=== PATIENT | male | born 1940 | race Caucasian/White ===

== ENCOUNTER 2018-09-08 21:44 | Emergency (ER) | payer OTHER ==
[2018-09-08 22:18] VITALS: TEMP 97.5
--- NOTE | 2018-09-08 22:46 | ED.PDOC ---
History of Present Illness - General Chief Complaint: Lower Extremity Injury Stated Complaint: rt hip pain Time Seen by Provider: 09/08/18 21:57 Source: patient Exam Limitations: no limitations - History of Present Illness Initial Comments: PT TRIPPED AT WORK. HIT HIS HEAD ON A PALLET AND LANDED ON HIS LEG. C/O PAIN TO R UPPER LEG. NO LOC, NO HEAD OR NECK PAIN. Severity: moderate Improving Factors: nothing Worsening Factors: nothing Associated Symptoms: denies symptoms Allergies/Adverse Reactions: Allergies NO KNOWN ALLERGY Allergy (Verified 09/08/18 22:18) Home Medications: Ambulatory Orders Amlodipine Besylate 10 mg PO DAILY 09/08/18 Aspirin [Aspirin Low Strength] 81 mg PO DAILY 09/08/18 Atorvastatin Calcium 40 mg PO DAILY 09/08/18 Clopidogrel Bisulfate [Plavix] 75 mg PO DAILY 09/08/18 Losartan Potassium 100 mg PO DAILY 09/08/18 Melatonin 5 mg PO 09/08/18 Meloxicam 15 mg PO DAILY 09/08/18 Metformin HCl 1,000 mg PO BID 09/08/18 Metoprolol Succinate [Metoprolol Succinate ER] 25 mg PO DAILY 09/08/18 Naproxen Sodium [Aleve] 220 mg PO BID 09/08/18 Tamsulosin [Flomax] 0.4 mg PO BID 09/08/18 Review of Systems - Review of Systems Constitutional: States: no symptoms reported EENTM: States: no symptoms reported Respiratory: Denies: cough, short of breath Cardiology: Denies: chest pain Gastrointestinal/Abdominal: Denies: nausea, vomiting Genitourinary: States: no symptoms reported Musculoskeletal: States: other - PAIN R UPPER LEG. Denies: back pain, neck pain Skin: States: no symptoms reported Neurological: Denies: numbness, paresthesia, weakness Endocrine: States: no symptoms reported Hematologic/Lymphatic: States: no symptoms reported Past Medical History (General) - Patient Medical History Hx Cardiac Disorders: Yes Hx Congestive Heart Failure: Yes Hx Hypertension: Yes Hx Diabetes: Yes Surgical History: coronary bypass surgery - Vaccination History Hx Tetanus, Diphtheria Vaccination: Yes Hx Influenza Vaccination: Yes - Triage Comment ED Triage Comment: Pain o upper right thigh and hip. Fell onto hip and hit rt side of head, but denies pain to head, no LOC Family Medical History - Family History Father Family History: Unknown Physical Exam - Physical Exam General Appearance: Alert, No apparent distress Eye Exam: bilateral normal Ears, Nose, Throat: hearing grossly normal, other - SMALL ABRSION POST OCCIPUT Neck: non-tender, full range of motion, supple Respiratory: lungs clear, normal breath sounds Cardiovascular/Chest: regular rate, rhythm, no murmur Gastrointestinal/Abdominal: non tender, soft, no organomegaly Back Exam: normal inspection, no vertebral tenderness Extremity: other - TTP R UPPER LEG. NO EVIDENCE OF TRAUMA, NVI, HIP NL NL ROM. Neurologic: no motor/sensory deficits, alert, normal mood/affect, oriented x 3 Skin Exam: normal color, warm/dry Lymphatic: no adenopathy Progress - EKG/XRAY/CT XRAY: FEMUR, LORNA CT: HEAD NEG PER RADIOLOGY Departure - Departure Clinical Impression: Contusion of scalp Qualifiers: Encounter type: initial encounter Qualified Code(s): S00.03XA - Contusion of scalp, initial encounter Contusion of leg Qualifiers: Encounter type: initial encounter Laterality: right Qualified Code(s): S80.11XA - Contusion of right lower leg, initial encounter Time of Disposition: 23:26 Disposition: Discharge to Home or Self Care Condition: Good Departure Forms: ED Discharge - Pt. Copy, Patient Portal Self Enrollment Instructions: Contusion (DC) Referrals: MICAELA GARCIA [Primary Care Provider] - 1-2 Weeks Home Medications: Ambulatory Orders Amlodipine Besylate 10 mg PO DAILY 09/08/18 Aspirin [Aspirin Low Strength] 81 mg PO DAILY 09/08/18 Atorvastatin Calcium 40 mg PO DAILY 09/08/18 Clopidogrel Bisulfate [Plavix] 75 mg PO DAILY 09/08/18 Losartan Potassium 100 mg PO DAILY 09/08/18 Melatonin 5 mg PO 09/08/18 Meloxicam 15 mg PO DAILY 09/08/18 Metformin HCl 1,000 mg PO BID 09/08/18 Metoprolol Succinate [Metoprolol Succinate ER] 25 mg PO DAILY 09/08/18 Naproxen Sodium [Aleve] 220 mg PO BID 09/08/18 Tamsulosin [Flomax] 0.4 mg PO BID 09/08/18
--- NOTE | 2018-09-08 23:13 | RAD ---
EXAM DESCRIPTION: Femur,Right CLINICAL HISTORY: 77 years Male, FALL WITH PAIN COMPARISON: None. FINDINGS: No evidence for an acute fracture. No dislocation. Mild osteophyte formation of the knee noted. Vascular calcifications are present. Prostate brachytherapy seeds are present. IMPRESSION: No acute findings. Electronically signed by: Jona Veronica MD 09/08/2018 11:10 PM CDT
--- NOTE | 2018-09-08 23:14 | CT ---
EXAM: CT head without contrast. INDICATION: Trauma, on blood thinners. TECHNIQUE: Contiguous axial CT images of the brain. Intravenous contrast: Absent. DLP 964 mGy-cm. This exam was performed according to our departmental dose-optimization program, which includes automated exposure control, adjustment of the mA and/or kV according to patient size and/or use of iterative reconstruction technique. COMPARISON: None. FINDINGS: Subcutaneous: Unremarkable. No acute intracranial hemorrhage. No midline shift. No mass effect. Ventricles: No hydrocephalus. Whitt-white differentiation preserved. Paranasal sinuses/mastoid air cells: Visualized portions are aerated. Bones/orbits: Visualized portions are unremarkable. IMPRESSION: 1. No CT evidence of acute intracranial hemorrhage. Electronically signed by: Kirill Aleman MD 09/08/2018 11:11 PM CDT Workstation: [id number]
[2018-09-08 23:25] VITALS: BP 92/59; O2SAT 95
== END 2018-09-08 23:43 | disposition home or self-care (01) ==
LOC: ER 21:44
DX: S00.03XA Contusion of scalp, initial encounter (principal); S80.11XA Contusion of right lower leg, initial encounter; M25.551 Pain in right hip; I50.9 Heart failure, unspecified; I11.0 Hypertensive heart disease with heart failure; E11.9 Type 2 diabetes mellitus without complications; W01.0XXA Fall on same level from slipping, tripping and stumbling without subsequent striking against object, initial encounter; Y99.0 Civilian activity done for income or pay; Y92.69 Other specified industrial and construction area as the place of occurrence of the external cause; Z95.1 Presence of aortocoronary bypass graft; Z79.84 Long term (current) use of oral hypoglycemic drugs; Z79.82 Long term (current) use of aspirin; Z79.899 Other long term (current) drug therapy

== ENCOUNTER → 2018-10-24 | Outpatient (CLI) | payer MEDICARE, OTHER ==
--- NOTE | 2018-10-24 11:31 | US ---
EXAM DESCRIPTION: Venous,Lower Extremity RT CLINICAL HISTORY: LOCALIZED SWELLING MASS AND LUMP RIGHT LOWER LIMB COMPARISON: None Available. TECHNIQUE: Right lower extremity venous grayscale, spectral, and color Doppler sonographic images. FINDINGS: There is no DVT identified. There is normal color flow observed with good flow augmentation. All deep veins compress normally. Fluid collection in the popliteal fossa measuring 5.9 x 1.4 x 0.8 cm, likely a popliteal cyst. IMPRESSION: Negative for DVT Electronically signed by: Jamie Leal MD 10/24/2018 11:28 AM CDT
== END ==
LOC: US 09:36
PROVIDERS: ATTEND Nurse Practitioner Family
DX: R22.41 Localized swelling, mass and lump, right lower limb (principal); I48.91 Unspecified atrial fibrillation

== ENCOUNTER → 2019-01-16 | Outpatient (CLI) | payer MEDICARE, OTHER ==
--- NOTE | 2019-01-16 12:43 | RAD ---
PROVIDED CLINICAL HISTORY/REASON FOR EXAM: M25.512/M25.511 Findings: Number of images: Four Location: Left shoulder No acute fracture or dislocation. High riding humeral head with moderate glenohumeral osteoarthritis. Widening of the acromioclavicular joint space. The coracoclavicular space is also widened. Intra-articular loose body measuring 9 mm. Osteopenia. Visualized chest is unremarkable. Narrowing of the subacromial space suggests a chronic rotator cuff injury. The widening of the acromioclavicular joint space and coracoclavicular space suggests AC joint separation. IMPRESSION: Chronic degenerative changes about the left shoulder. No acute osseous abnormality. Electronically signed by: Orlando Saleh MD 01/16/2019 12:42 PM CDT
--- NOTE | 2019-01-16 12:56 | RAD ---
PROVIDED CLINICAL HISTORY/REASON FOR EXAM: M25.512/M25.511 Findings: Number of images: 4 Location: Right shoulder No acute fracture or dislocation. Mild acromioclavicular osteoarthritis. Soft tissues are unremarkable. Subacromial space is narrowed. Visualized chest is clear. High riding humeral head. Mild glenohumeral osteoarthritis. IMPRESSION: Chronic degenerative changes about the right shoulder. No evidence of acute process. Electronically signed by: Orlando Saleh MD 01/16/2019 12:55 PM CDT
== END ==
LOC: RAD 07:37
PROVIDERS: ATTEND Orthopaedic Surgery
DX: M19.011 Primary osteoarthritis, right shoulder (principal); M19.012 Primary osteoarthritis, left shoulder

== ENCOUNTER → 2019-01-20 | Outpatient (CLI) | payer MEDICARE, OTHER ==
--- NOTE | 2019-01-20 13:58 | MRI ---
Study: MRI of the Left Shoulder. Indication: ROTATOR CUFF SYNDROME Technique: Multiplanar, multi sequence MRI of the left shoulder was obtained without intravenous contrast. Comparison: Radiographs January 16, 2019. Findings: Severe AC joint osteoarthritis with widening of the joint space and a moderate size joint effusion. Ossification within the coracoclavicular ligament. One shaft width superior displacement distal clavicle in relation to the acromion indicating a remote AC joint injury. Full-thickness, fullwidth supraspinatus and infraspinatus tendon tearing with torn tendon fibers retracted medial to the glenoid. High grade articular, effectively full-thickness, fullwidth subscapularis tendon tearing with the majority of the torn tendon bulk retraction medial to the glenoid. Severe atrophy and grade 3 fatty infiltration rotator cuff musculature. Long head biceps tendon torn and distally retracted. The humeral head is anteriorly subluxed in relation to the glenoid by 15 mm. Mass of joint effusion with extensive scattered synovitis/debris. Ganglionic like extension of fluid into the posterolateral deltoid musculature. Circumferential labral truncation and degeneration. Grade 4 chondrosis and subchondral cystic change superior glenoid rim. Pronounced cortical remodeling and subcortical cystic change lateral margin humeral head with additional patchy areas of grade 2 and 3 chondrosis throughout the joint with small inferior osteophytes. No acute fracture. Impression: Full-thickness, fullwidth chronic appearing retracted supraspinatus and infraspinatus tendon tearing. High-grade articular, effectively full-thickness, fullwidth subscapularis tendon tear. Severe atrophy and grade 3 fatty infiltration rotator cuff musculature. Torn and distally retracted long head biceps tendon. Mild to moderate glenohumeral joint osteoarthritis with a massive joint effusion and extensive synovitis/debris throughout the joint. A component of underlying inflammatory arthritis could give this appearance. Sterility of the effusion is indeterminate 5 this exam. Remote AC joint injury with secondary osteoarthritis. Additional findings as above. Electronically signed by: Joel Sun MD 01/20/2019 1:56 PM CDT
== END ==
LOC: LAB.O 10:07
PROVIDERS: ATTEND Orthopaedic Surgery
DX: S46.212A Strain of muscle, fascia and tendon of other parts of biceps, left arm, initial encounter (principal); S46.012A Strain of muscle(s) and tendon(s) of the rotator cuff of left shoulder, initial encounter; S43.82XA Sprain of other specified parts of left shoulder girdle, initial encounter; M19.012 Primary osteoarthritis, left shoulder; M62.512 Muscle wasting and atrophy, not elsewhere classified, left shoulder; M25.512 Pain in left shoulder

== ENCOUNTER 2019-01-21 18:07 | Emergency (ER) | payer MEDICARE, OTHER ==
[2019-01-21] MEDS ORDERED: PROMETHAZINE HCL INJ 25 MG/ML VIAL IM ONE (19:27)
[2019-01-21] MEDS ORDERED: HYDROmorphone HCL INJ 2 MG/ML VIAL IM ONE ×2 (19:27→20:40)
--- NOTE | 2019-01-21 20:36 | ED.PDOC ---
History of Present Illness - General Chief Complaint: General Stated Complaint: L shoulder discomfort Time Seen by Provider: 01/21/19 18:44 Source: patient Exam Limitations: no limitations - History of Present Illness Initial Comments: Emmanuel Dodge 78 y/o male came to ER with left shoulder pain for the last several weeks and had hemarthrosis drained out from his left shoulder last one was 2 days ago.Has appointment for open drainage of his hemarthrosis with Dr. De Luna orthopedist on Saturday. Timing/Duration: intermittent, other - see hpi Severity: moderate Improving Factors: nothing, eating Associated Symptoms: other - see hpi Allergies/Adverse Reactions: Allergies NO KNOWN ALLERGY Allergy (Verified 09/08/18 22:18) Home Medications: Ambulatory Orders Amlodipine Besylate 10 mg PO DAILY 09/08/18 Atorvastatin Calcium 40 mg PO DAILY 09/08/18 Clopidogrel Bisulfate [Plavix] 75 mg PO DAILY 09/08/18 Losartan Potassium 100 mg PO DAILY 09/08/18 Melatonin 5 mg PO DAILY 09/08/18 Meloxicam 7.5 mg PO DAILY 09/08/18 Metformin HCl [Metformin Hydrochloride] 1,000 mg PO BID 09/08/18 Metoprolol Succinate [Metoprolol Succinate ER] 25 mg PO DAILY 09/08/18 Tamsulosin [Flomax] 0.4 mg PO DAILY 09/08/18 Acetaminophen W/ Codeine [Acetaminophen/Codeine #3 300-30 mg] 1 tab PO PRN 01/21/19 Acetaminophen W/ Codeine [Tylenol/Codeine #4 300-60 mg] 1 ea PO Q4HR PRN #20 tab 01/21/19 Apixaban [Eliquis] 2.5 mg PO DAILY 01/21/19 Cephalexin 1,000 mg PO BID 7 Days #30 cap 01/21/19 Empagliflozin [Jardiance] 10 mg PO DAILY 01/21/19 Ferrous Sulfate 325 mg PO BID 01/21/19 Furosemide 40 mg PO DAILY 01/21/19 Potassium Chloride [Potassium Chloride ER] 10 meq PO DAILY 01/21/19 Review of Systems - Review of Systems Musculoskeletal: States: joint swelling - left shoulder All other Systems: Reviewed and Negative, No Change from Baseline Past Medical History (General) - Patient Medical History Hx Cardiac Disorders: Yes - AAA Hx Congestive Heart Failure: Yes Hx Hypertension: Yes Hx Diabetes: Yes Hx Cancer: Yes - Prostate Surgical History: coronary bypass surgery, other - aaa repair - Vaccination History Hx Tetanus, Diphtheria Vaccination: Yes Hx Influenza Vaccination: Yes - 2017 Hx Pneumococcal Vaccination: Yes - Social History Hx Tobacco Use: No Hx Alcohol Use: No Family Medical History - Family History Father Family History: Unknown Physical Exam - Physical Exam General Appearance: Alert, Other - in pain Eye Exam: bilateral normal, bilateral other - need to wear glassees Ears, Nose, Throat: hearing grossly normal, normal ENT inspection Neck: supple, normal inspection Respiratory: lungs clear, normal breath sounds, no respiratory distress Cardiovascular/Chest: normal peripheral pulses, regular rate, rhythm, no murmur Peripheral Pulses: radial,right: 2+, radial,left: 2+ Gastrointestinal/Abdominal: soft, no organomegaly Back Exam: no CVA tenderness, no vertebral tenderness Extremity: no pedal edema, no calf tenderness Neurologic: alert, oriented x 3, other - [id number] left shoulder joint with painful rom Skin Exam: normal color, warm/dry Progress - Progress Progress: 01/21/19 20:39 Vital Signs - 8 hr 01/21/19 01/21/19 01/21/19 18:07 19:28 20:00 Temperature 98.9 F Pulse Rate [ 73 67 68 Left Brachial] Respiratory 20 18 20 Rate Blood Pressure 165/84 135/76 123/65 [Left Arm] O2 Sat by Pulse 97 96 96 Oximetry Procedures - Incision and Drainage #1 Site: left shoulder joint Procedure and Prep: betadine prep, sterile drapes applied, sterile dressings applied, other - drainage of hemarthrosis Blade Size: 11 Departure - Departure Clinical Impression: Hemarthrosis involving shoulder region Qualifiers: Laterality: left Qualified Code(s): M25.012 - Hemarthrosis, left shoulder Time of Disposition: 20:44 Disposition: Discharge to Home or Self Care Condition: Fair Departure Forms: ED Discharge - Pt. Copy, Patient Portal Self Enrollment Instructions: Hemarthrosis (DC) Referrals: MICAELA GARCIA [Primary Care Provider] - 1-2 Weeks Prescriptions: Acetaminophen W/ Codeine [Tylenol/Codeine #4 300-60 mg] 1 ea PO Q4HR PRN #20 tab PRN Reason: Pain Cephalexin 1,000 mg PO BID 7 Days #30 cap Home Medications: Ambulatory Orders Amlodipine Besylate 10 mg PO DAILY 09/08/18 Atorvastatin Calcium 40 mg PO DAILY 09/08/18 Clopidogrel Bisulfate [Plavix] 75 mg PO DAILY 09/08/18 Losartan Potassium 100 mg PO DAILY 09/08/18 Melatonin 5 mg PO DAILY 09/08/18 Meloxicam 7.5 mg PO DAILY 09/08/18 Metformin HCl [Metformin Hydrochloride] 1,000 mg PO BID 09/08/18 Metoprolol Succinate [Metoprolol Succinate ER] 25 mg PO DAILY 09/08/18 Tamsulosin [Flomax] 0.4 mg PO DAILY 09/08/18 Acetaminophen W/ Codeine [Acetaminophen/Codeine #3 300-30 mg] 1 tab PO PRN 01/21/19 Acetaminophen W/ Codeine [Tylenol/Codeine #4 300-60 mg] 1 ea PO Q4HR PRN #20 tab 01/21/19 Apixaban [Eliquis] 2.5 mg PO DAILY 01/21/19 Cephalexin 1,000 mg PO BID 7 Days #30 cap 01/21/19 Empagliflozin [Jardiance] 10 mg PO DAILY 01/21/19 Ferrous Sulfate 325 mg PO BID 01/21/19 Furosemide 40 mg PO DAILY 01/21/19 Potassium Chloride [Potassium Chloride ER] 10 meq PO DAILY 01/21/19 Additional Instructions: Keep appointment with Dr. De Luna Orthopedist as scheduled;Return to Emergency room as needed
[2019-01-21] MEDS ORDERED: HYDROCOD/APAP 5/325 (ER DISP) #3 TAB PO ONE (20:41)
[2019-01-21] MEDS ORDERED: CEPHALEXIN MONOHYDRATE 500 MG CAP PO ONE (20:47)
[2019-01-21 20:55] VITALS: BP 137/63; TEMP 98.1; O2SAT 94
== END 2019-01-21 20:51 | disposition home or self-care (01) ==
LOC: ER 18:07
DX: M25.012 Hemarthrosis, left shoulder (principal); I50.9 Heart failure, unspecified; I11.0 Hypertensive heart disease with heart failure; E11.9 Type 2 diabetes mellitus without complications; Z85.46 Personal history of malignant neoplasm of prostate; Z95.1 Presence of aortocoronary bypass graft; Z79.899 Other long term (current) drug therapy; Z79.01 Long term (current) use of anticoagulants
CPT/HCPCS: J1170; J2550

== ENCOUNTER 2019-01-23 05:25 | Day surgery (SDC) | payer MEDICARE, OTHER ==
--- NOTE | 2019-01-22 09:51 | HP ---
CHIEF COMPLAINT: Left shoulder pain. HISTORY OF PRESENT ILLNESS: Mr. Dodge is an 78-year-old male with a history of swelling and pain in the shoulder. He has had pain going on for a couple of weeks now. He has been having to a sling because of the severity of his symptoms. At this point, he has no history of trauma related to this recently, but has a remote history. He says the pain he is having is at a 10 and pretty much is constant. He says he has been on Eliquis and Plavix. It is causing him difficulty with his daily activities. Because of the ongoing swelling and the multiple times it has been drained, he has requested operative intervention. He has arthritis and full thickness rotator cuff tear with retraction, however, because of the current symptoms, I think he would benefit most from doing an I&D followed by a shoulder replacement once his symptoms have improved and he has cardiology clearance. After discussing the risks, benefits and alternatives to this, he has given informed consent. PAST SURGICAL HISTORY: None. MEDICATIONS: 1. Amlodipine. 2. Atorvastatin. 3. Eliquis. 4. Furosemide. 5. Hydrocodone. 6. Klor-Con. 7. Iron. 8. Losartan. 9. Metformin. 10. Metoprolol. 11. Tamsulosin. PAIN CONTRACT: None. ALLERGIES: NO KNOWN DRUG ALLERGIES. CODE STATUS: DNR. IMMUNIZATIONS: Up to date. SOCIAL HISTORY: The patient does not drink, smoke or use any illicit drugs. FAMILY HISTORY: None pertinent to today's complaint. REVIEW OF SYSTEMS: Negative except as indicated in the History of Present Illness. PHYSICAL EXAMINATION: VITAL SIGNS: Blood pressure 140/62. Pulse 70. Height 5'10". Weight 178 pounds. MENTAL STATUS: The patient is awake, alert, and is able to give a good history and participate in the physical. The patient is oriented to person, place and time. SKIN: Normal tone and turgor. HEENT: Normocephalic, atraumatic. Pupils equal, round and reactive. Mucosal membranes are moist. NECK: Normal range of motion. No thyromegaly, no lymphadenopathy. CHEST: Normal respiratory excursion. CARDIAC: Regular rate and rhythm. No murmurs, rubs or gallops. MUSCULOSKELETAL: Both lower extremities show full active range of motion without pain. He has intact sensation in the extremities and they are warm and well perfused. Sensation is intact. There is no deformity and no crepitus with range of motion. The right upper extremity has some pain with range of motion, but is relatively minimal. He has intact sensation throughout the extremity and it is warm and well perfused. There is no deformity and no crepitus. The left upper extremity shows a tense effusion in the shoulder. He has difficulty with any range of motion secondary to pain. There is no increased warmth and no erythema over that area. The extremity is warm and well perfused. Strength testing of the shoulder is difficult secondary to pain. 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 IMAGING: X-rays show arthritis and large hematoma and evidence of full thickness rotator cuff tear with retraction. PLAN: The plan at this point is for I&D of the shoulder with followup likely total shoulder arthroplasty in the future. We have discussed the risks, benefits, and alternatives to that and the patient has given informed consent. #[id number] MTDD
--- NOTE | 2019-01-22 13:05 | RAD ---
EXAM DESCRIPTION: Chest,2 Views CLINICAL HISTORY: z01.811 preop COMPARISON: Chest radiograph dated October 24, 2018 FINDINGS: PA and lateral views of the chest. Postsurgical changes with median sternotomy wires. Cardiac silhouette shows normal heart size. Pulmonary vascularity is within normal limits. Linear opacity in the left retrocardiac region, best seen on the lateral view, may represent atelectasis versus infiltrate. Right lung shows no confluent infiltrates. No significant pleural effusion. No pneumothorax. Mild degenerative disc disease of the thoracic spine. IMPRESSION: 1. Linear opacity left retrocardiac region may represent atelectasis versus infiltrate. 2. Other findings as above. Electronically signed by: Rodríguez Ceron MD 01/22/2019 1:04 PM CDT
[2019-01-23] MEDS ORDERED: LACTATED RINGERS 1,000 ML ONE (05:58)
[2019-01-23] MEDS ORDERED: SODIUM CHL 0.9% 100ML MINI-BAG 100 ML IVPB ONE (05:58)
[2019-01-23] MEDS ORDERED: ceFAZolin SODIUM 1 GM VIAL ONE ×3 (05:58→06:42)
[2019-01-23] MEDS ORDERED: BUPIVACAINE 0.5% 30 ML VIAL INJ ONE (06:33)
[2019-01-23] MEDS ORDERED: VANCOMYCIN HCL INJ 1,000 MG VIAL IVPB ONE ×3 (06:33→07:45)
[2019-01-23] MEDS ORDERED: ROCURONIUM BROMIDE 10 MG/ML VIAL ONE (06:48)
[2019-01-23] MEDS ORDERED: fentaNYL CITRATE INJ 50 MCG/ML AMP ONE (06:48)
[2019-01-23] MEDS ORDERED: SUGAMMADEX SODIUM 200 MG/2 ML VIAL IV ONE (06:48)
[2019-01-23] MEDS ORDERED: ONDANSETRON INJ 4 MG/2 ML VIAL ONE ×2 (07:00→07:03)
[2019-01-23] MEDS ORDERED: DEXAMETHASONE INJ 10 MG/ML VIAL ONE (07:00)
[2019-01-23] MEDS ORDERED: PROPOFOL 200 MG/20 ML VIAL IV ONE (07:00)
[2019-01-23] MEDS ORDERED: LIDOCAINE 1% 10 ML VIAL INJ ONE (07:00)
[2019-01-23] MEDS ORDERED: SODIUM CHLORIDE 0.9% 250ML 250 ML ONE (07:45)
[2019-01-23] MEDS: BUPIVACAINE LIPOSOME 13.3 MG/ML VIAL INJ ONE ×2 (08:25→08:26)
[2019-01-23] MEDS ORDERED: LACTATED RINGERS 1,000 ML IVS ONE (08:51)
[2019-01-23] MEDS ORDERED: MORPHINE SULFATE INJ 10 MG/ML VIAL ONE (09:02)
[2019-01-23] MEDS ORDERED: MORPHINE SULFATE INJ 10 MG/ML VIAL IV ONE ×4 (09:05→09:25)
[2019-01-23] MEDS ORDERED: HYDROcodone 5MG/APAP 325MG 1 EA TAB ONE (09:52)
[2019-01-23] MEDS ORDERED: HYDROCOD/APAP 5/325 (ER DISP) #3 TAB PO ONE (10:05)
[2019-01-23 11:26] VITALS: BP 101/52; TEMP 96.4; O2SAT 94
--- NOTE | 2019-01-27 07:54 | OP ---
DATE OF PROCEDURE: 01/23/19 PREOPERATIVE DIAGNOSIS: 1. Hemarthrosis. 2. Arthritis. 3. Rotator cuff tear. POSTOPERATIVE DIAGNOSIS: 1. Hemarthrosis. 2. Arthritis. 3. Rotator cuff tear. PROCEDURE: 1. I&D of shoulder. SURGEON: Xiang De Luna MD. GLOBAL CTO: Cosme Norris CST, SA-C. ANESTHESIA: General anesthesia. COMPLICATIONS: None. FINDINGS: 1. Large hemarthrosis with very large clot. 2. Full thickness rotator cuff tear with retraction. 3. Endstage arthritis. INDICATION FOR PROCEDURE: Mr. Dodge has a long history of shoulder pain, however, has been getting significantly worse and has had acute onset of nontraumatic swelling. He has a history of utilization of Eliquis. Because of the presence of that, he has had multiple attempts at aspiration. He has continued to have reaccumulation of the hemarthrosis. Because of his ongoing issues and severe pain, he has requested operative intervention. After discussing the risks, benefits and alternatives to operative therapy, he has given informed consent. PROCEDURE: The patient was brought to the Operating Room and placed in supine position. General anesthesia was induced. The patient was transitioned into the beach chair position. Following transitioning into the beach chair position, the arm was sterilely prepped and draped. An incision was made over the deltopectoral interval and following that, dissection was carried down and the clavipectoral fascia was opened. Upon opening that, a very large hematoma was evacuated. The entire shoulder was examined and thoroughly irrigated to evacuate the entirety of the hemarthrosis. Cultures were taken at the time for completeness sake in evaluation. Once evacuation of the hematoma had been achieved, the wound was closed with reapproximation of the deltopectoral interval followed by reapproximation of the skin with a combination of running and interrupted subcuticular stitches. Sterile dressings were placed. The patient was placed in a sling, awoken from anesthesia and taken to Recovery. POSTOPERATIVE PLAN: He is going to be in a sling and will followup with us in two days. #[id number] MTDD
== END 2019-01-23 11:15 | disposition home or self-care (01) ==
LOC: AMB 05:25
PROVIDERS: ATTEND Orthopaedic Surgery
DX: M25.012 Hemarthrosis, left shoulder (principal); M75.102 Unspecified rotator cuff tear or rupture of left shoulder, not specified as traumatic; M13.812 Other specified arthritis, left shoulder; I10 Essential (primary) hypertension; I73.9 Peripheral vascular disease, unspecified; E11.51 Type 2 diabetes mellitus with diabetic peripheral angiopathy without gangrene; I25.10 Atherosclerotic heart disease of native coronary artery without angina pectoris; I48.91 Unspecified atrial fibrillation; E78.5 Hyperlipidemia, unspecified; Z79.01 Long term (current) use of anticoagulants; Z79.84 Long term (current) use of oral hypoglycemic drugs; Z79.02 Long term (current) use of antithrombotics/antiplatelets; Z79.899 Other long term (current) drug therapy
CPT/HCPCS: 01610; 23030; 36415; 36416; 71046; 80048; 80307; 81001; 82948; 87070; 87205; 93005; J0690; J1100; J2270; J2405; J3010; J3370; J3490; J7050; J7120

== ENCOUNTER → 2019-02-03 | Outpatient (CLI) | payer MEDICARE, OTHER ==
--- NOTE | 2019-02-03 09:13 | CT ---
EXAM DESCRIPTION: Upper Extremity CLINICAL HISTORY: 78 years Male, PRIMARY OSTEOARTHRITIS, LEFT SHOULDER COMPARISON: MRI January 20, 2019, left shoulder series January 16, 2019 TECHNIQUE: CT left shoulder was performed without IV contrast. This exam was performed according to our departmental dose-optimization program, which includes automated exposure control, adjustment of the mA and/or kV according to patient size and/or use of iterative reconstruction technique. FINDINGS: No acute left humeral head or neck fracture. [place]-Sachs fracture suggestive of prior anterior dislocation. The glenoid and scapula are intact. Moderately advanced degenerative changes in the glenohumeral joint including joint space narrowing and osteophyte formation along the inferior glenoid margin and inferior medial humeral head. Subcortical cyst formation in the superior glenoid. Superior migration of the left humeral head relative to the glenoid with narrowing of the subacromial space suggestive of chronic left-sided rotator cuff tear. Pseudoarthrosis formation involving the superior humeral head and acromion with osteophytosis and subcortical cyst formation. Moderate degenerative changes involving the left AC joint including osteophyte formation and subcortical cyst formation. Tiny degenerative calcification along the medial aspect of the coracoid base, additional calcification involving the coracoclavicular ligament suggestive of remote AC joint separation. Large left shoulder joint effusion better visualized on recent MRI with diffuse synovial calcification and/or calcified loose joint bodies. Left-sided facet and uncovertebral joint hypertrophy at multiple levels in the cervical spine resulting in left-sided neuroforaminal stenosis at several levels. A left carotid artery stent is partially visualized. Coronary artery disease. No left-sided airspace consolidation. No apparent left-sided rib fracture. IMPRESSION: Moderate to moderately advanced degenerative changes in the left glenohumeral joint with chronic left-sided rotator cuff tear, superior migration of the left humeral head, subacromial space narrowing and pseudoarthrosis formation as detailed above. [place]-Sachs fracture suggestive of remote anterior left shoulder dislocation. Remote left AC joint separation with moderate degenerative changes in the left AC joint. Degenerative changes in the cervical spine including left-sided facet and uncovertebral joint infarct in the resulting in left-sided neural foraminal stenosis at several levels. Electronically signed by: Paulino Simental MD 02/03/2019 9:12 AM CDT
== END ==
LOC: CT 08:16
PROVIDERS: ATTEND Orthopaedic Surgery
DX: M19.012 Primary osteoarthritis, left shoulder (principal); M75.102 Unspecified rotator cuff tear or rupture of left shoulder, not specified as traumatic; S43.102A Unspecified dislocation of left acromioclavicular joint, initial encounter; M47.892 Other spondylosis, cervical region; Z87.81 Personal history of (healed) traumatic fracture

== ENCOUNTER 2019-02-11 15:26 | Emergency (ER) | payer MEDICARE, OTHER ==
[2019-02-11 15:50] VITALS: TEMP 98.1
[2019-02-11] MEDS ORDERED: POVIDONE IODINE 10 % 15 ML UD TOP ONE (16:04)
[2019-02-11] MEDS ORDERED: LIDOCAINE 1% 10 ML VIAL INJ ONE (16:04)
--- NOTE | 2019-02-11 16:07 | ED.PDOC ---
History of Present Illness - General Chief Complaint: Upper Extremity Injury Stated Complaint: LEFT SHOULDER PAIN Time Seen by Provider: 02/11/19 15:55 Source: patient Exam Limitations: no limitations - History of Present Illness Initial Comments: HE HAS ATRIAL FIB AND ON ELIQUIS. HE ALSO HAS A LEFT SHOULDER HEMARTHROSIS AND ROTATOR CUFF TEAR THAT FREQUENTLY DEVELOPS A TIGHHT HEMATOMA. HE HAS BEEN UNDER THE CARE OF DR. RIVERA AND IS SCHEDULED TO HAVE A SHOULDER REPLACEMENT IN THE NEAR FUTURE. NOW THE LEFT SHOULDER HAS BECOME MORE PAINFUL AND FOR THAT REASON HE IS HERE. IN THE PAST THIS IS ASPIRATED AND ONCE THE TENSION IS RELIEVED HIS PAIN IS USUALLY IMPROVED. Occurred: yesterday Pain - Upper Extremity: severe: Shoulder, left Method of Injury: other - HX OF HEARTHROSIS AND ROTATOR CUFF TEAR. Allergies/Adverse Reactions: Allergies NO KNOWN ALLERGY Allergy (Verified 09/08/18 22:18) Home Medications: Ambulatory Orders Amlodipine Besylate 10 mg PO DAILY 09/08/18 Atorvastatin Calcium 40 mg PO DAILY 09/08/18 Losartan Potassium 100 mg PO DAILY 09/08/18 Melatonin 5 mg PO DAILY 09/08/18 Metformin HCl [Metformin Hydrochloride] 1,000 mg PO BID 09/08/18 Metoprolol Succinate [Metoprolol Succinate ER] 25 mg PO DAILY 09/08/18 Tamsulosin [Flomax] 0.4 mg PO DAILY 09/08/18 Acetaminophen W/ Codeine [Acetaminophen/Codeine #3 300-30 mg] 1 tab PO PRN 01/21/19 Apixaban [Eliquis] 2.5 mg PO DAILY 01/21/19 Empagliflozin [Jardiance] 10 mg PO DAILY 01/21/19 Ferrous Sulfate 325 mg PO BID 01/21/19 Furosemide 40 mg PO DAILY 01/21/19 Potassium Chloride [Potassium Chloride ER] 10 meq PO DAILY 01/21/19 Review of Systems - Review of Systems Constitutional: States: no symptoms reported EENTM: States: no symptoms reported Respiratory: States: no symptoms reported Cardiology: States: no symptoms reported Gastrointestinal/Abdominal: States: no symptoms reported Genitourinary: States: no symptoms reported Musculoskeletal: States: joint pain, joint swelling Skin: States: no symptoms reported Neurological: States: no symptoms reported Past Medical History (General) - Patient Medical History Hx Cardiac Disorders: Yes - AAA Hx Congestive Heart Failure: Yes Hx Hypertension: Yes Hx Diabetes: Yes - GLUCOSE 211 POSTOP Hx Cancer: No Hx MRSA: No - Vaccination History Hx Tetanus, Diphtheria Vaccination: Yes Hx Influenza Vaccination: Yes - 2018 Hx Pneumococcal Vaccination: Yes - Social History Hx Tobacco Use: No Hx Alcohol Use: No Hx Substance Use: No Hx Depression: No Family Medical History - Family History Father Family History: Unknown Physical Exam - Physical Exam General Appearance: Alert, Well Developed, Well Groomed, Well Hydrated, Well Nourished Eyes, Ears, Nose, Throat Exam: PERRL/EOMI, normal ENT inspection, TMs normal Neck: non-tender, full range of motion, supple Cardiovascular/Respiratory: regular rate, rhythm, no M/R/G, normal peripheral pulses, no JVD Abdominal Exam: non-tender, no organomegaly Shoulder Exam: ecchymosis, limited ROM, pain, soft tissue tenderness, swelling Elbow/Forearm Exam: normal inspection, non-tender Neuro/Tendon: normal sensation Procedures - Additional Procedures Progress: LEFT SHOULDER JOINT ASPIRATION: THE LEFT SHOULDER WAS PREPPED WITH BETADINE, 1% LIDOCAINE WAS USED TO INFILTRATE THE SKIN AND WITH AN 18 GAUGE NEEDLE ASPIRATION OF THE JOINT WAS PERFORMED OBTAINING APPROX 50 CC OF BLOODY SYNOVIAL FLUID. THE PATIENT TOLERATE THE PROCEDURE WELL AND HAD SIGNIFICANT RELIEF. HE HAS A F/U APPOINTMENT WITH DR. RIVERA TOMORROW. Departure - Departure Clinical Impression: Hemarthrosis involving glenohumeral joint Qualifiers: Laterality: left Qualified Code(s): M25.012 - Hemarthrosis, left shoulder Rotator cuff tear Qualifiers: Rotator cuff tear extent: unspecified tear extent Rotator cuff tear trauma status: unspecified whether traumatic Laterality: left Qualified Code(s): M75.102 - Unspecified rotator cuff tear or rupture of left shoulder, not specifi ed as traumatic Time of Disposition: 16:31 Disposition: Discharge to Home or Self Care Condition: Good Departure Forms: ED Discharge - Pt. Copy, Patient Portal Self Enrollment Instructions: Hemarthrosis (DC) Diet: resume usual diet Referrals: MICAELA GARCIA [Primary Care Provider] - 1-2 Weeks Home Medications: Ambulatory Orders Amlodipine Besylate 10 mg PO DAILY 09/08/18 Atorvastatin Calcium 40 mg PO DAILY 09/08/18 Losartan Potassium 100 mg PO DAILY 09/08/18 Melatonin 5 mg PO DAILY 09/08/18 Metformin HCl [Metformin Hydrochloride] 1,000 mg PO BID 09/08/18 Metoprolol Succinate [Metoprolol Succinate ER] 25 mg PO DAILY 09/08/18 Tamsulosin [Flomax] 0.4 mg PO DAILY 09/08/18 Acetaminophen W/ Codeine [Acetaminophen/Codeine #3 300-30 mg] 1 tab PO PRN 01/21/19 Apixaban [Eliquis] 2.5 mg PO DAILY 01/21/19 Empagliflozin [Jardiance] 10 mg PO DAILY 01/21/19 Ferrous Sulfate 325 mg PO BID 01/21/19 Furosemide 40 mg PO DAILY 01/21/19 Potassium Chloride [Potassium Chloride ER] 10 meq PO DAILY 01/21/19
[2019-02-11 16:36] VITALS: BP 134/75; O2SAT 98
== END 2019-02-11 16:37 | disposition home or self-care (01) ==
LOC: ER 15:26
DX: M25.012 Hemarthrosis, left shoulder (principal); M75.102 Unspecified rotator cuff tear or rupture of left shoulder, not specified as traumatic; I11.0 Hypertensive heart disease with heart failure; I50.9 Heart failure, unspecified; E11.9 Type 2 diabetes mellitus without complications; Z79.01 Long term (current) use of anticoagulants; Z79.899 Other long term (current) drug therapy; Z79.84 Long term (current) use of oral hypoglycemic drugs

== ENCOUNTER 2019-03-18 05:45 | Day surgery (SDC) | payer MEDICARE, OTHER ==
--- NOTE | 2019-03-12 10:36 | HP ---
CHIEF COMPLAINT: Left shoulder pain. HISTORY OF PRESENT ILLNESS: Mr. Dodge is an 78-year-old male with a history of shoulder pain that has been present for several years and getting progressively worse. He has had multiple times where he has had hemarthrosis. Because of that, he has had to undergo I&D. He has also had issues secondary to his massive rotator cuff tear and advanced arthritis. He has pain that can radiate to a 10 in intensity, although today at rest it is only at a level of about a 1. He has very limited range of motion secondary to stiffness and pain. Alleviating factors are limitation in motions. Aggravating factors are motion, weightbearing and pain at night. As stated, he has had injections, anti- inflammatories and surgical irrigation of the shoulder. Because of his ongoing symptoms, we talked about further operative intervention and for him, it would be a reverse shoulder arthroplasty. After discussing the risks, benefits and alternatives to that, he has given informed consent for total shoulder arthroplasty. PAST SURGICAL HISTORY: 1. I&D of shoulder. MEDICATIONS: 1. Amlodipine. 2. Atorvastatin. 3. Furosemide. 4. Hydrocodone p.r.n. 5. Iron. 6. Klor-Con. 7. Losartan. 8. Metformin. 9. Metoprolol. 10. Tamsulosin. 11. Jardiance. PAIN CONTRACT: None. ALLERGIES: NO KNOWN DRUG ALLERGIES. CODE STATUS: DNR. IMMUNIZATIONS: Up to date. SOCIAL HISTORY: The patient does not drink, smoke or use any illicit drugs. FAMILY HISTORY: None pertinent to today's complaint. REVIEW OF SYSTEMS: Negative except as indicated in the History of Present Illness. HEENT: The patient reports no symptoms. RESPIRATORY: The patient reports no symptoms. CARDIOVASCULAR: Positive for hypertension, cardiac disease. GASTROINTESTINAL: The patient reports no symptoms GENITOURINARY: The patient reports no symptoms. ENDOCRINE: Positive for diabetes. MUSCULOSKELETAL: Positive for cramping, arthritis. Otherwise, negative except as noted in History of Present Illness. SKIN: The patient reports no symptoms. NEUROLOGIC: The patient reports no symptoms. PHYSICAL EXAMINATION: VITAL SIGNS: Blood pressure 144/72. Pulse 62. Height 5'9". Weight 172 pounds. MENTAL STATUS: The patient is awake, alert, and is able to give a good history and participate in the physical. The patient is oriented to person, place and time. SKIN: Normal tone and turgor. HEENT: Normocephalic, atraumatic. Pupils equal, round and reactive. Mucosal membranes are moist. NECK: Normal range of motion. No thyromegaly, no lymphadenopathy. CHEST: Normal respiratory excursion. CARDIAC: Regular rate and rhythm. No murmurs, rubs or gallops. MUSCULOSKELETAL: The bilateral lower extremities show full active range of motion. He has intact sensation. They are warm and well perfused. There is no deformity, no malalignment. He walks with a normal gait. He has no instability. Skin is intact. Strength is 5/5. Reflexes are 2+. The right upper extremity shows full active abduction and he has some mild discomfort with that. He has intact sensation. There is no deformity, no crepitus. Sensation is intact. It is warm and well perfused. Belly press is negative. Neer and Son are negative. He has full flexion and extension of the elbow and full flexion and extension of the wrist and digits. The left shoulder has a well-healed wound over the anterior aspect. There is no swelling today. Sensation is intact in the extremity. He has only about 30 to 40 degrees of abduction and about 60 to 70 degrees of forward flexion. Fire Sprinkler Fitter strength is 5/5. He has crepitus throughout his range of motion. The deltoid is actively firing. He has intact sensation over the lateral aspect of the shoulder. He has full range of motion in the elbow, wrist and digits. RADIOLOGY: My interpretation of the x-rays shows severe arthritis with superior migration of his humeral head. MRI was performed and my interpretation of the MRI does confirm arthritis with rotator cuff tear. ASSESSMENT: 1. Arthritis. 2. Rotator cuff tear. PLAN: The plan at this point is for reverse shoulder arthroplasty. We have discussed the risks, benefits, and alternatives to that and the patient has given informed consent. #[id number] [facility]
[~2019-03-18 05:45] MED LIST: LACTATED RINGERS 1,000 ML ONE; SODIUM CHL 0.9% 100ML MINI-BAG 100 ML IVPB ONE; TRANEXAMIC ACID 1,000 MG/10 ML VIAL ONE
[2019-03-18] MEDS ORDERED: SODIUM CHLORIDE 0.9% 250ML 250 ML ONE (05:46)
[2019-03-18] MEDS ORDERED: ceFAZolin SODIUM 1 GM VIAL ONE (05:46)
[2019-03-18] MEDS ORDERED: VANCOMYCIN HCL INJ 1,000 MG VIAL IVPB ONE ×3 (05:46→06:28)
[2019-03-18] MEDS ORDERED: SODIUM CHL 0.9% 100ML MINI-BAG 100 ML IVPB ONE (05:52)
[2019-03-18] MEDS ORDERED: SODIUM CHLORIDE 0.9% 100ML 100 ML IVPB ONE (05:58)
[2019-03-18] MEDS ORDERED: TRANEXAMIC ACID 1,000 MG/10 ML VIAL ONE (05:58)
[2019-03-18] MEDS ORDERED: BUPIVACAINE LIPOSOME 13.3 MG/ML VIAL INJ ONE (06:28)
[2019-03-18] MEDS ORDERED: BUPIVACAINE 0.5% 30 ML VIAL INJ ONE (06:28)
[2019-03-18] MEDS ORDERED: CLINDAMYCIN IV 900MG 0 ML IVPB ONE (06:28)
[2019-03-18] MEDS ORDERED: fentaNYL CITRATE INJ 50 MCG/ML AMP ONE (06:53)
[2019-03-18] MEDS ORDERED: BUPIVACAINE 0.25% W/EPI 50 ML VIAL INJ ONE (06:55)
[2019-03-18] MEDS ORDERED: LIDOCAINE 1% 10 ML VIAL INJ ONE ×2 (06:55→10:00)
[2019-03-18] MEDS ORDERED: methylPREDNISolone ACETATE 80 MG/ML VIAL ONE (06:55)
[2019-03-18] MEDS ORDERED: PROPOFOL 200 MG/20 ML VIAL IV ONE (10:00)
[2019-03-18] MEDS ORDERED: diphenhydrAMINE HCL 50 MG/ML VIAL IV ONE (10:00)
[2019-03-18] MEDS ORDERED: SODIUM CHLORIDE 0.9% 50 ML VIAL INJ ONE (10:00)
[2019-03-18 14:18] VITALS: BP 151/64; TEMP 97.4; O2SAT 97
--- NOTE | 2019-03-19 08:48 | OP ---
DATE OF PROCEDURE: 03/18/19 PREOPERATIVE DIAGNOSIS: 1. Rotator cuff tear. 2. Arthritis. 3. Adhesive capsulitis. POSTOPERATIVE DIAGNOSIS: 1. Rotator cuff tear. 2. Arthritis. 3. Adhesive capsulitis. PROCEDURE: 1. Manipulation under anesthesia. 2. Injection into joint, major. SURGEON: Xiang De Luna MD. E COMMERCE ANALYST: Cosme Norris CST, SA-C. ANESTHESIA: Conscious sedation. COMPLICATIONS: None. FINDINGS: Osteoarthritis with adhesive capsulitis. Preprocedure range of motion was limited to approximately 30 degrees of abduction. Following that, it was at least 120 degrees of abduction and forward flexion. INDICATION: Mr. Dodge has a history of the above diagnoses. I had spoken with Mr. Dodge and we had talked about potential for total shoulder arthroplasty. His pain was relatively minimal and, therefore, he elected to undergo manipulation with injection. After discussing the risks, benefits and alternatives to that, the patient has given informed consent for that. PROCEDURE: The patient was brought to the Operating Room and placed in supine position. Sedation was administered and the shoulder was abducted and forward flexed. Following abduction and forward flexion, the patient's shoulder was sterilely prepped and 4 cc of Marcaine, 4 cc of lidocaine and 40 of Depo-Medrol were injected into the joint space. The needle was withdrawn and pressure was held at the site, followed by placement of a sterile bandage. The patient was then taken back to the Day Surgery Unit. POSTOPERATIVE PLAN: The patient is going to start immediate range of motion exercises with physical therapy department. #[id number] [facility]
== END 2019-03-18 08:15 | disposition home or self-care (01) ==
LOC: AMB 05:45
PROVIDERS: ATTEND Orthopaedic Surgery
DX: M19.012 Primary osteoarthritis, left shoulder (principal); M75.102 Unspecified rotator cuff tear or rupture of left shoulder, not specified as traumatic; M75.02 Adhesive capsulitis of left shoulder; Z79.84 Long term (current) use of oral hypoglycemic drugs; Z79.899 Other long term (current) drug therapy
CPT/HCPCS: 01620; 20610; 23700; 36416; 80307; 81001; 82948; A4216; J0690; J1030; J1200; J3010; J3370; J3490; J7050; J7120

== ENCOUNTER → 2019-04-30 | Outpatient (CLI) | payer MEDICARE, OTHER | LOC: LAB.O 08:23 | PROVIDERS: ATTEND Emergency Medicine | DX: R19.7 Diarrhea, unspecified (principal) ==

== ENCOUNTER 2019-07-19 18:19 | Emergency (ER) | payer MEDICARE, OTHER ==
[2019-07-19 18:41] VITALS: BP 130/68
--- NOTE | 2019-07-19 18:47 | ED.PDOC ---
History of Present Illness - General Chief Complaint: Skin/Abrasion/Tear Time Seen by Provider: 07/19/19 18:45 Additional Information: Pt rolled over the carpet and has laceration on the L forearm , having some bleeding which has not stopped as he takes ASA. - History of Present Illness Timing/Duration: 1-3 hours Severity: mild Worsening Factors: nothing Associated Symptoms: denies symptoms Allergies/Adverse Reactions: Allergies NO KNOWN ALLERGY Allergy (Verified 09/08/18 22:18) Home Medications: Ambulatory Orders Amlodipine Besylate 10 mg PO DAILY 09/08/18 Atorvastatin Calcium 40 mg PO DAILY 09/08/18 Metformin HCl [Metformin Hydrochloride] 1,000 mg PO BID 09/08/18 Tamsulosin [Flomax] 0.4 mg PO DAILY 09/08/18 Ferrous Sulfate 325 mg PO BID 01/21/19 Ranolazine [Ranexa] 1,000 mg PO BID 07/19/19 Review of Systems - Review of Systems Constitutional: States: no symptoms reported EENTM: States: no symptoms reported Respiratory: States: no symptoms reported Cardiology: States: no symptoms reported Gastrointestinal/Abdominal: States: no symptoms reported Genitourinary: States: no symptoms reported Musculoskeletal: States: no symptoms reported Skin: States: see HPI Neurological: States: no symptoms reported Endocrine: States: no symptoms reported Hematologic/Lymphatic: States: no symptoms reported Past Medical History (General) - Patient Medical History Hx Cardiac Disorders: Yes - AAA Hx Congestive Heart Failure: No Hx Hypertension: Yes Hx Diabetes: Yes Hx Cancer: No Hx MRSA: No - Vaccination History Hx Tetanus, Diphtheria Vaccination: Yes Hx Influenza Vaccination: Yes - 2017 Hx Pneumococcal Vaccination: Yes - Social History Hx Tobacco Use: No Hx Alcohol Use: No Hx Substance Use: No Hx Depression: No Family Medical History - Family History Father Family History: Unknown Physical Exam - Physical Exam General Appearance: Alert, Comfortable Ears, Nose, Throat: hearing grossly normal Neck: non-tender, full range of motion Respiratory: no respiratory distress, no accessory muscle use Cardiovascular/Chest: no edema, no JVD Back Exam: normal inspection Extremity: normal range of motion, non-tender, normal inspection 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 Copy, Patient Portal Self Enrollment Activity: increase activity as tolerated Referrals: MICAELA GARCIA [Primary Care Provider] - 1-2 Weeks Home Medications: Ambulatory Orders Amlodipine Besylate 10 mg PO DAILY 09/08/18 Atorvastatin Calcium 40 mg PO DAILY 09/08/18 Metformin HCl [Metformin Hydrochloride] 1,000 mg PO BID 09/08/18 Tamsulosin [Flomax] 0.4 mg PO DAILY 09/08/18 Ferrous Sulfate 325 mg PO BID 01/21/19 Ranolazine [Ranexa] 1,000 mg PO BID 07/19/19
[2019-07-19 19:05] VITALS: TEMP 97.2; O2SAT 93
== END 2019-07-19 18:57 | disposition home or self-care (01) ==
LOC: ER 18:19
DX: S51.812A Laceration without foreign body of left forearm, initial encounter (principal); I10 Essential (primary) hypertension; E11.9 Type 2 diabetes mellitus without complications; Z79.82 Long term (current) use of aspirin; Z79.899 Other long term (current) drug therapy; Z79.84 Long term (current) use of oral hypoglycemic drugs; X58.XXXA Exposure to other specified factors, initial encounter; Y92.9 Unspecified place or not applicable

== ENCOUNTER → 2020-01-14 | Outpatient (CLI) | payer MEDICARE, OTHER ==
--- NOTE | 2020-01-14 13:50 | RAD ---
EXAM DESCRIPTION: Right elbow, 3 radiographs CLINICAL HISTORY: PAIN IN ELBOW RIGHT FINDINGS/ IMPRESSION: Severe osteoarthritis of the elbow. Joint space narrowing. Prominent marginal osteophytes. Well-corticated body along the lateral joint line Joint effusion with elevation anterior fat pad. Loose body in the olecranon fossa of the distal humerus measures about 1.3 cm seen on the oblique radiograph Soft tissue swelling over the olecranon with a large enthesophyte at the triceps insertion. Swelling may relate to olecranon bursitis No fracture or dislocation Electronically signed by: Dennis Wagoner MD 01/14/2020 1:48 PM CDT
== END ==
LOC: RAD 08:18
PROVIDERS: ATTEND Orthopaedic Surgery
DX: M19.021 Primary osteoarthritis, right elbow (principal); M24.021 Loose body in right elbow; M25.721 Osteophyte, right elbow; M25.421 Effusion, right elbow; M79.9 Soft tissue disorder, unspecified

== ENCOUNTER → 2020-03-30 | Outpatient (CLI) | payer MEDICARE, OTHER ==
--- NOTE | 2020-03-31 06:53 | CT ---
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 This examination was performed according to a CT angiographic (CTA) protocol with 3D post-processing. This involves 3D reconstructions, MIPS, volume rendered images and/or shaded surface rendering. COMPARISON: None at time of initial interpretation. FINDINGS: Bibasilar volume loss. No focal consolidation or suspicious pulmonary nodule. The liver is unremarkable. No suspicious hepatic lesion. No biliary dilatation. The gallbladder is unremarkable. The spleen, pancreas and adrenal glands are unremarkable. Inferior left renal cortical scarring. No hydronephrosis. No obstructing urolithiasis. The bladder is decompressed, with a thickened/trabeculated wall. Metallic seeds in the prostate. Scattered colonic diverticula without focal inflammatory change. No evidence of bowel obstruction. No findings to suggest appendicitis. Large stool volume. Small hiatal hernia. No adenopathy. No focal fluid collection. No free air. Diffuse atherosclerotic disease. Focal 50% stenosis at the origin of the celiac artery, with postobstructive dilatation measuring 1.2 cm. The SMA is patent. The SUSANNA origin is not visualized. Moderate atherosclerotic plaque at the origins of the renal arteries. Chronic occlusion of the distal aorta. Patent aortobifemoral bypass. Retrograde opacification of the distal external iliac arteries bilaterally. There is a small focal dissection of the left common femoral artery measuring 1 cm just prior to its bifurcation. The redding abdominal aorta is normal in caliber. No acute or suspicious osseous abnormality. Scattered degenerative changes present. IMPRESSION: 1. Patent aortobifemoral bypass graft. 2. Focal dissection of the left common femoral artery just prior to its bifurcation. Electronically signed by: Orlando Saleh MD 03/31/2020 6:51 AM CDT
--- NOTE | 2020-03-31 06:53 | CT ---
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 This examination was performed according to a CT angiographic (CTA) protocol with 3D post-processing. This involves 3D reconstructions, MIPS, volume rendered images and/or shaded surface rendering. COMPARISON: None at time of initial interpretation. FINDINGS: Bibasilar volume loss. No focal consolidation or suspicious pulmonary nodule. The liver is unremarkable. No suspicious hepatic lesion. No biliary dilatation. The gallbladder is unremarkable. The spleen, pancreas and adrenal glands are unremarkable. Inferior left renal cortical scarring. No hydronephrosis. No obstructing urolithiasis. The bladder is decompressed, with a thickened/trabeculated wall. Metallic seeds in the prostate. Scattered colonic diverticula without focal inflammatory change. No evidence of bowel obstruction. No findings to suggest appendicitis. Large stool volume. Small hiatal hernia. No adenopathy. No focal fluid collection. No free air. Diffuse atherosclerotic disease. Focal 50% stenosis at the origin of the celiac artery, with postobstructive dilatation measuring 1.2 cm. The SMA is patent. The SUSANNA origin is not visualized. Moderate atherosclerotic plaque at the origins of the renal arteries. Chronic occlusion of the distal aorta. Patent aortobifemoral bypass. Retrograde opacification of the distal external iliac arteries bilaterally. There is a small focal dissection of the left common femoral artery measuring 1 cm just prior to its bifurcation. The [place] abdominal aorta is normal in caliber. No acute or suspicious osseous abnormality. Scattered degenerative changes present. IMPRESSION: 1. Patent aortobifemoral bypass graft. 2. Focal dissection of the left common femoral artery just prior to its bifurcation. Electronically signed by: Orlando Saleh MD 03/31/2020 6:51 AM CDT
== END ==
LOC: CT 10:30
PROVIDERS: ATTEND Emergency Medicine
DX: Z01.812 Encounter for preprocedural laboratory examination (principal); I71.4 Abdominal aortic aneurysm, without rupture; I77.89 Other specified disorders of arteries and arterioles